=== PATIENT | female | born 1995 | race Caucasian/White ===

== ENCOUNTER → 2019-04-23 12:13 | Outpatient (CLI) | payer BC, SELFPAY | PROVIDERS: Visit Provider Physician Assistant | DX: J02.9 Acute pharyngitis, unspecified (principal) | CPT/HCPCS: 87070; 87077; 87147; 87185 ==

== ENCOUNTER → 2019-09-09 08:51 | Outpatient (CLI) | payer BC, SELFPAY ==
[2019-09-09 10:08] LABS: Follicle Stimulating Hormone 3.94 mIU/mL; Luteinizing Hormone 4.39 mIU/mL
[2019-09-09 10:09] LABS: Prolactin 19.1 ng/mL (3.0-18.6)
[2019-09-09 10:21] LABS: Thyroid Stimulating Hormone 4.37 uIU/mL (0.47-4.68)
[2019-09-12 15:09] LABS: Inhibin B < 10 pg/mL
[2019-09-14 01:02] LABS: Testosterone Free 5.1 pg/mL (0.1-6.4); Testosterone Total 28 ng/dL (2-45)
== END ==
DX: N97.0 Female infertility associated with anovulation (principal)
CPT/HCPCS: 36415; 82397; 83001; 83002; 84146; 84402; 84403; 84443